=== PATIENT | female | born 1995 | race Hispanic/Latino ===

== ENCOUNTER 2020-03-13 11:04 | Emergency (ER) | payer SELFPAY ==
[~2020-03-13] VITALS: Ht 160 cm; Wt 89.8 kg
[2020-03-13] MEDS ORDERED: KETOROLAC TROMETHAMINE 60 MG/2 ML VIAL IM ONE (11:30)
--- NOTE | 2020-03-13 12:13 | Diagnostic Imaging Report ---
EXAM: CHEST SINGLE (NOT PORTABLE) DATE: 03/13/2020 11:45 AM INDICATION: Chest pain COMPARISON: None FINDINGS: The trachea is midline. The lungs are symmetrically expanded without evidence for large focal consolidation, pneumothorax, or significant pleural effusion. The cardiomediastinal silhouette and pulmonary vasculature are within normal limits. No acute osseous abnormality is identified. The surrounding soft tissues are unremarkable. IMPRESSION: No acute cardiopulmonary process identified. Signed by: Dr. Román Sheriff MD on 03/13/2020 12:10 PM
--- NOTE | 2020-03-13 12:57 | Emergency Department Note ---
History of Present Illnes History of Present Illness Chief Complaint: Chest Pain History of Present Illness This is a 24 year old female PATIENT IN FROM HOME WITH COMPLAINTS OF CH EST PAIN X 2 WEEKS; STATES WAS SEEN AT ANOTHER ER 2 WEEKS AGO FOR THE SAME AND TOLD THAT EVERYTHING WAS NORMAL BUT TO FOLLOW-UP WITH CARDIOLOGY FOR A STRESS TEST. PATIENT STATES SHE DID NOT MAKE A FOLLOW-UP APPOINTMENT. PATIENT ALERT AND ORIENTED, RESP EVEN AND NONLABORED, APPEARS IN NO DISTRESS, AMBULATORY WITHOUT ASSISTANCE. Historian: Patient Arrival Mode: Car Receiving Associate Required: No Onset (how long ago): week(s) (2) Location: ANTERIOR CHEST Quality: SHARP Radiation: Reports non-radiation Severity: moderate Onset quality: gradual Timing of current episode: constant Progression: unchanged Chronicity: new Context: Denies recent illness Relieving factors: none Exacerbating factors: movement Associated symptoms: Reports denies other symptoms; Denies cough, Denies fever/chills, Denies shortness of breath Past Medical/Family History Physician Review I have reviewed the patient's past medical and family history. Any updates have been documented here. Past Medical History Recent Fever: No Clinical Suspicion of Infectio: No New/Unexplained Change in Ment: No Past Medical History: None Past Surgical History: Appendectomy Social History Smoking Cessation: Never Smoker Counseling Performed: No Alcohol Use: None Any Illegal Drug Use: No TB Exposure/Symptoms: No Physically hurt or threatened: No Family History Family history of heart diseas: No Other Last Tetanus: 2016 Any Pre-Existing Lines (PICC,: No Review of Systems Review of Systems Constitutional: Reports no symptoms EENTM: Reports no symptoms Cardiovascular: Reports as per HPI, Reports chest pain Respiratory: Reports no symptoms Gastrointestinal: Reports no symptoms Genitourinary: Reports no symptoms Musculoskeletal: Reports no symptoms Integumentary: Reports no symptoms Neurological: Reports no symptoms Psychological: Reports no symptoms Endocrine: Reports no symptoms Hematological/Lymphatic: Reports no symptoms Physical Exam Related Data Allergies: Coded Allergies: latex (Verified Allergy, Mild, Hives, 03/13/20) shellfish derived (Verified Allergy, Mild, HIVES, 03/13/20) Triage Vital Signs Vital Signs Date Time Temp Pulse Resp B/P (MAP) Pulse Ox O2 Delivery O2 Flow Rate FiO2 03/13/20 11:16 97.3 87 20 120/69 100 Room Air Vital signs reviewed: Yes Physical Exam CONSTITUTIONAL Constitutional: Present well-developed, Present well-nourished HENT HENT: Present normocephalic, Present atraumatic, Present oropharynx clear/moist, Present nose normal HENT L/R: Present left ext ear normal, Present right ext ear normal EYES Eyes: Reports PERRL, Reports conjunctivae normal NECK Neck: Present ROM normal PULMONARY Pulmonary: Present effort normal, Present breath sounds normal, Present chest tenderness (REPRODUCIBLE TENDERNESS STERNUM AND RIGHT CHEST WALL) CARDIOVASCULAR Cardiovascular: Present regular rhythm, Present heart sounds normal, Present capillary refill normal, Present normal rate GASTROINTESTINAL Abdominal: Present soft, Present nontender, Present bowel sounds normal GENITOURINARY Genitourinary: Present exam deferred SKIN Skin: Present warm, Present dry MUSCULOSKELETAL Musculoskeletal: Present ROM normal NEUROLOGICAL Neurological: Present alert, Present oriented x 3, Present no gross motor or sensory deficits PSYCHOLOGICAL Psychological: Present mood/affect normal, Present judgement normal Results Imaging Imaging results reviewed: Yes Impressions EXAM: CHEST SINGLE (NOT PORTABLE) DATE: 03/13/2020 11:45 AM INDICATION: Chest pain COMPARISON: None FINDINGS: The trachea is midline. The lungs are symmetrically expanded without evidence for large focal consolidation, pneumothorax, or significant pleural effusion. The cardiomediastinal silhouette and pulmonary vasculature are within normal limits. No acute osseous abnormality is identified. The surrounding soft tissues are unremarkable. IMPRESSION: No acute cardiopulmonary process identified. Signed by: Dr. Román Sheriff MD on 03/13/2020 12:10 PM Procedures 12 Lead ECG Interpretation ECG Interpretation : ECG: ECG 1 Receiving Associate: Interpreted by ED physician Date: Mar 13, 2020 Time: 11:30 Rhythm: sinus rhythm Rate: normal BPM: 68 QRS axis: normal Conduction: intraventricular conduction delay ST segments normal: Yes T waves normal: Yes Clinical Impression: non-specific ECG Assessment & Plan Medical Decision Making MDM REPRODUCIBLE CHEST WALL PAIN - CXR, ECG Reassessment Reassessment IMPROVED WITH TORADOL. DC HOME, OTC IBUPROFEN UD, F/U PCP & CARDIOLOGY, RTED PRN Assessment & Plan Final Impression: (1) Chest wall pain Depart Disposition: HOME, SELF-CARE Last Vital Signs Date Time Temp Pulse Resp B/P (MAP) Pulse Ox O2 Delivery O2 Flow Rate FiO2 03/13/20 11:16 97.3 87 20 120/69 100 Room Air Home Meds No Active Prescriptions or Reported Meds Medications in the ED Ketorolac Tromethamine 60 mg ONCE ONCE IM ; Start 03/13/20 at 11:30; Stop 03/13/20 at 11:31; Status DC DENTON BARNES MD Mar 13, 2020 12:57
[2020-03-13 13:20] VITALS: BP 127/79
== END 2020-03-13 13:20 | disposition home or self-care (01) ==
LOC: ER 11:30
DX: R07.89 Other chest pain (principal)
CPT/HCPCS: 71045; 93005; 99284; J1885

== ENCOUNTER 2024-07-03 07:48 | Emergency (ER) | payer SELFPAY ==
[~2024-07-03] VITALS: Ht 160 cm; Wt 89.8 kg
[2024-07-03 07:56] VITALS: PULSE 92; RESP 18; TEMP 98.5; O2SAT 99
== END 2024-07-03 08:23 | disposition home or self-care (01) ==
LOC: ER 08:01
DX: R51.9 Headache, unspecified (principal)
CPT/HCPCS: 99282